=== PATIENT | female | born 1950 | race Caucasian/White ===

== ENCOUNTER 2018-04-18 13:36 | Outpatient (CLI) | payer MEDICARE, OTHER, MEDICAID ==
[~2018-04-18] VITALS: Ht 162.6 cm; Wt 54.5 kg
[~2018-04-18 13:36] MED LIST: ACETAMINOPHEN325 MG PO; ACETAMINOPHEN500 M1 PO; ASPIRIN325 MG PO; BACLOFEN10 MG PO; BACLOFEN20 M1 PO; BENICAR40 MG PO; BIOFREEZE118 ML TOPICAL; BISCOLAX10 MG/SUPP RC; BUTRANS TRANSDERM; CARDIZEM CD240 MG PO; CARDIZEM60 MG PO; CARTIA XT240 MG PO; CELEXA20 MG PO; CELEXA40 MG PO; CHLOR-TRIMETON4 MG PO; COUMADIN3 MG PO; COZAAR50 MG; DETROL2 MG PO; DIFLUCAN100 MG PO; DULCOLAX10 MG/SUPP RC; ELECTROLYTE PROTOCOL; FLEXERIL10 MG; FOSAMAX 70 MG T70 MG PO; IBUPROFEN400 MG PO; JEVITY 1.2 CAL237 ML PT; K-DUR20 MEQ PO; LOTREL 10/20 CA1 CAP PO; LYRICA50 MG PO; MAG-OX 400 MG400 MG PT; MIRALAX17 GM PO; MIRAPEX0.125 MG PO; MUCINEX600 MG PO; ONDANSETRON4 MG/2 M3 IV; PERCOCET 10/3251 TA1 PO; PERI-COLACE TAB1 TAB PO; POTASSIUM20 MEQ/11 PO; POTASSIUM20 MEQ/11 PT; PROTEIN LIQUID30 ML PO; PROTONIX40 MG PO; PROTONIX40 MG PT; SALINE FLUSH10 ML IJ; SENNA PLUS TA1 UDTAB PO; SENNA8.6 MG PO; SENOKOT-S TABLE1 TAB PO; TENORMIN50 MG PO; TUMS500 MG PT; TYLENOL W/CODEI1 TAB PO; ULTRAM50 MG PO; WELLBUTRIN XL150 M1 PO; ZOCOR40 MG PO; ZOFRAN4 MG PO
[2018-04-18 14:22] VITALS: BP 152/61; Ht 162.6 cm; Wt 54.5 kg
--- NOTE | 2018-04-18 19:26 | NUR ---
191 REPORT FROM MAGDIEL BONILLA RN. PT. AWAKE, SPEECH IS GARBLED, SMILING, RIGHT ARM IN SLING, DRINKING O.J. VOIDS LG AMT ON BEDSIDE COMMODE. IV INFUSING LEFT HAND OF BLOOD PATENT AT 250/CC/HR.
--- NOTE | 2018-04-18 19:55 | NUR ---
1944 BLOOD NEAR COMPLETION. DENIES NEEDS, SMILING.
--- NOTE | 2018-04-18 20:30 | NUR ---
1999 BLOOD HAS COMPLETED, LINE BEING FLUSHED WITH NS 2024 PT'S TRANSPORTATION HERE, IV DC'D WITH CATH INTACT. RELEASED IN OWN WC.
== END 2018-04-18 20:30 | disposition home or self-care (01) ==
LOC: D.OPS 13:36
DX: D50.9 Iron deficiency anemia, unspecified (principal); Z01.812 Encounter for preprocedural laboratory examination